=== PATIENT | female | born 1950 | race Caucasian/White ===

== ENCOUNTER 2016-04-11 13:24 | Emergency (ER) | payer OTHER ==
[~2016-04-11] VITALS: Ht 154.9 cm; Wt 75.9 kg
[2016-04-11 17:02] VITALS: BP 133/71
== END 2016-04-11 17:03 | disposition home or self-care (01) ==
LOC: EME 13:24
DX: S61.258A Open bite of other finger without damage to nail, initial encounter (principal); S71.152A Open bite, left thigh, initial encounter; Z20.3 Contact with and (suspected) exposure to rabies; W55.01XA Bitten by cat, initial encounter; Z23 Encounter for immunization
CPT/HCPCS: 99281; 99284

== ENCOUNTER 2016-04-18 11:14 | Emergency (ER) | payer OTHER ==
[~2016-04-18] VITALS: Ht 154.9 cm; Wt 74.3 kg
[2016-04-18] MEDS ORDERED: FENOFIBRATE160 M1 PO (11:32)
[2016-04-18] MEDS ORDERED: IRBESARTAN300 MG PO (11:32)
[2016-04-18] MEDS ORDERED: CLONIDINE HCL0.1 MG PO (11:33)
[2016-04-18] MEDS ORDERED: LASIX40 MG PO (11:33)
[2016-04-18 12:50] VITALS: BP 167/97
== END 2016-04-18 12:50 | disposition home or self-care (01) ==
LOC: EXP 11:14 → EME 11:14 → EXP 12:50
PROC: 3E0234Z Introduction of Serum, Toxoid and Vaccine into Muscle, Percutaneous Approach (ICD-10-PCS; principal; 2016-04-18)
DX: Z20.3 Contact with and (suspected) exposure to rabies (principal); Z23 Encounter for immunization
CPT/HCPCS: 99281; 99283

== ENCOUNTER 2016-04-25 10:55 | Emergency (ER) | payer OTHER ==
[~2016-04-25] VITALS: Ht 154.9 cm; Wt 74.4 kg
[~2016-04-25 10:55] MED LIST: CLONIDINE HCL0.1 MG PO; FENOFIBRATE160 M1 PO; IRBESARTAN300 MG PO; LASIX40 MG PO
[2016-04-25 11:07] VITALS: BP 184/136
== END 2016-04-25 12:00 | disposition home or self-care (01) ==
LOC: EME 10:55
PROC: 3E0234Z Introduction of Serum, Toxoid and Vaccine into Muscle, Percutaneous Approach (ICD-10-PCS; principal; 2016-04-25)
DX: Z20.3 Contact with and (suspected) exposure to rabies (principal); Z23 Encounter for immunization
CPT/HCPCS: 99281; 99283